=== PATIENT | male | born 1995 | race Caucasian/White ===

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

== ENCOUNTER 2017-01-23 13:53 | Outpatient (CLI) | payer BC ==
[~2017-01-23] VITALS: Ht 188 cm; Wt 95.7 kg
[2017-01-23 14:00] VITALS: BP 116/60
[2017-01-23] MEDS ORDERED: PEDI1TAB46 PO (14:18)
[2017-01-23] MEDS ORDERED: CHOL100045 PO (14:18)
[2017-01-23] MEDS ORDERED: ASCO500T6 PO (14:18)
[2017-01-24] MEDS ORDERED: IBUP-1780 PO (09:38)
[2017-01-24] MEDS ORDERED: PRD20T PO (09:38)
[2017-01-24] MEDS ORDERED: HYDR-3730 PO (09:38)
== END 2017-01-23 14:10 | disposition home or self-care (01) ==
LOC: PREOP 13:53
PROVIDERS: ATTEND Surgery Pediatric Surgery
DX: Z01.818 Encounter for other preprocedural examination (principal); Z11.2 Encounter for screening for other bacterial diseases; K40.90 Unilateral inguinal hernia, without obstruction or gangrene, not specified as recurrent
CPT/HCPCS: 87081

== ENCOUNTER 2017-01-24 06:27 | Day surgery (SDC) | payer BC ==
[~2017-01-24] VITALS: Ht 188 cm; Wt 95.7 kg
[2017-01-24] MEDS: LACTATED RINGERS 1,000 ML IV PRN ×2 (06:20→08:50)
[~2017-01-24 06:27] MED LIST changes: -BUP/EPI 0.5% 1:200,000 (SENSORCAINE) 30 ML VIAL ONE; -CATHETER FLUSH 10 ML SYR IV PRN; -HYDR-3730 PO; -IBUP-1780 PO; -IOHEXOL 350 MG/ML 100 ML (OMNIPAQUE 350) VIAL IV ONE; -NS 100 ML (IVPB) BAG IV ONE; -PRD20T PO
[2017-01-24 06:53] LABS: MEAN PLATELET VOLUME 9.5 FL (7.4-10.4); RED BLOOD COUNT 4.99 10^6/uL (4.35-5.85); RED CELL DISTRIBUTION WIDTH 12.5 % (10.0-14.5); WHITE BLOOD COUNT 4.9 10^3/uL (4.3-11.0)
[2017-01-24 06:57] VITALS: BP 105/51
[2017-01-24] MEDS ORDERED: CLINDAMYCIN 600 MG/50 ML IVPB 50 ML IV ONE ×2 (07:38→08:00)
[2017-01-24] MEDS ORDERED: fentaNYL INJECTION 100 MCG/2 ML AMP ONE ×2 (07:49→10:07)
[2017-01-24] MEDS ORDERED: MIDAZOLAM 2 MG/2 ML (VERSED) VIAL ONE (07:49)
--- NOTE | 2017-01-24 07:57 | Progress Note-Pre Operative ---
Pre-Operative Progress Note H&P Reviewed The H&P was reviewed, patient examined and no changes noted. Date H&P Reviewed: Jan 24, 2017 Time H&P Reviewed: 07:40 Pre-Operative Diagnosis: Symptomatic direct left inguinal hernia EDA ECHEVARRIA ELECTRONIC SCANNER OPERATOR Jan 24, 2017 7:57 am
[2017-01-24] MEDS ORDERED: CLINDAMYCIN 600 MG/NS 50 ML IVPB IV ONE ×2 (08:00)
[2017-01-24] MEDS ORDERED: ONDANSETRON 4 MG/2 ML (SDV) Z0FRAN ONE (09:18)
[2017-01-24] MEDS ORDERED: LIDOCAINE PF 2% 10 ML (XYLOCAINE) AMP ONE (09:18)
[2017-01-24] MEDS ORDERED: SEVOFLURANE (ULTANE) 15 ML INHAL SOLN ONE ×4 (09:18)
[2017-01-24] MEDS ORDERED: ROCURONIUM 50 MG/5 ML (ZEMURON) VIAL IV ONE (09:18)
[2017-01-24] MEDS ORDERED: LACTATED RINGERS 2,000 ML IV ONE (09:18)
[2017-01-24] MEDS ORDERED: proPOfol 200 MG/20 ML (DIPRIVAN) VIAL IV ONE (09:18)
[2017-01-24] MEDS ORDERED: DEXAMETHASONE PF 10 MG/ML (DECADRON) VIAL ONE (09:18)
--- NOTE | 2017-01-24 09:34 | Progress Note-Post Operative ---
Post-Operative Progess Note Surgeon (s)/Hearing Aid Dispenser (s) Surgeon WAI LEAVITT MD Hearing Aid Dispenser: vy delarosa PERSONAL BANKING ASSISTANT Pre-Operative Diagnosis Symptomatic direct left inguinal hernia Post-Operative Diagnosis symptomatic left inguinal strain, no hernia. Post-Op Procedure Note Date of Procedure: Jan 24, 2017 Name of Procedure Performed: diagnostic laparoscopy Description of the Procedure: diagnostic laparoscopy Findings of the Procedure . Anesthesia Type GET Estimated blood loss (mL): minimal Specimen(s) collected/removed none WAI LEAVITT MD Jan 24, 2017 9:34 am
[2017-01-24] MEDS ORDERED: PRD20T PO (09:38)
[2017-01-24] MEDS ORDERED: HYDR-3730 PO (09:38)
[2017-01-24] MEDS ORDERED: IBUP-1780 PO (09:38)
[2017-01-24] MEDS ORDERED: ONDANSETRON 4 MG/2 ML (SDV) Z0FRAN IVP PRN (09:45)
[2017-01-24] MEDS ORDERED: morphine INJ 10 MG/ML 1ML (SYR OR VIAL) IVP PRN ×2 (09:45→10:15)
[2017-01-24] MEDS ORDERED: HYDROcodone/APAP 5 MG/325 MG (LORTAB) TAB PO ONE (09:45)
[2017-01-24] MEDS ORDERED: ACETAMINOPHEN 325 MG TABLET/CAPLET (TYLENOL) PO PRN (09:45)
[2017-01-24] MEDS ORDERED: BUP/EPI 0.5% 1:200,000 (SENSORCAINE) 30 ML VIAL INJ ONE (09:45)
[2017-01-24] MEDS ORDERED: KETOROLAC 30 MG/ML VIAL ONE (09:58)
[2017-01-24 10:10] VITALS: BP 116/67
[2017-01-24] MEDS ORDERED: fentaNYL INJECTION 100 MCG/2 ML AMP IVP PRN (10:15)
[2017-01-24 10:40] VITALS: BP 133/65
[2017-01-24 11:10] VITALS: BP 133/65
--- NOTE | 2017-01-24 11:16 | OPERATIVE REPORT ---
DATE OF SERVICE: 01/24/2017 PREOPERATIVE DIAGNOSIS: Early left inguinal hernia. POSTOPERATIVE DIAGNOSIS: No hernias identified. The small bowel, colon, mesentery, gallbladder and liver appeared normal. PROCEDURE: Diagnostic laparoscopy. SURGEON: Dr. Leavitt. WOOD BOATBUILDER: José Miguel Arreola APRN. ANESTHESIA: General endotracheal. ESTIMATED BLOOD LOSS: Minimal. FINDINGS: There was no left inguinal hernia components bilaterally, even after general anesthetic and relaxation, as well as pneumo insufflation for approximately 30 minutes. There were no other hernias identified. The small bowel, omentum, colon, appendix, liver, gallbladder and remainder of the peritoneal cavity appeared normal. DISPOSITION: The patient tolerated the procedure well. DESCRIPTION OF PROCEDURE: The patient is a 21-year-old male who we have seen before in the past. 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 He reports in approximately 08/2016 he felt pain in the inguinal region, more on the left side. He does a lot of strenuous running, as well as lifting weights. He reports that during stretches, as well as exercises and lifting weights this would exacerbate his pain more so in the left groin region. We had seen him in the office on previous occasions and there was no hernia identified; however, he did have pain upon palpation in the left inguinal region and we treated him as an inguinal ligament strain. We continued with conservative management with no exertional activities for six weeks, as well as NSAIDs; however, he continued to have pain in the left inguinal region. A CT scan was performed which did not show any hernias. Again, we had seen him in the office, and he did upon forceful Valsalva maneuver there potentially appeared to be an outpouching along the left pubic symphysis region. There were no indirect hernia defects. Due to his persistent symptoms, it was decided to proceed with a diagnostic laparoscopy. The patient was brought to the operating room and laid supine on the table. After adequate intravenous medications and general endotracheal intubation, the abdomen was prepped and draped in the standard surgical fashion. There was 0.5% Marcaine with epinephrine was used to anesthetize the infraumbilical rim. A skin incision was made using a 15 blade. The abdominal wall was retracted anteriorly using a sharp towel clamp and a Verres needle inserted with opening pressure of 0 mmHg. The abdomen was insufflated at 15 mmHg. The Verres needle was removed and a 10 mm Xcel trocar placed, followed by a 10 mm 45 degree angle laparoscope. The four quadrant abdominal exploration was performed. There was no left direct or indirect inguinal hernia component identified. There was also no hernia component identified on the right side. We waited for approximately 30 minutes of continued muscle relaxation and pneumo insufflation with no defects identified. The small bowel, colon, omentum, appendix, liver and gallbladder appeared normal. There were also no defects within the linea semilunaris that would indicate a spigelian hernia. Due to no findings of an inguinal hernia, it was decided to proceed with medical management. The abdomen was desufflated and the port removed. The fascia was then closed using a running 0 PDS suture. The skin was closed using 4-0 Monocryl running subcuticular suture. The wound was then covered with Dermabond. The patient tolerated the procedure well. We will proceed with medical therapy with anti-inflammatories with a tapering dose of prednisone starting at 60 mg for one week, then 40 mg the following week, followed by 20 mg the following week. We will also refer him to pain management for possible injection therapy. We will also proceed with ibuprofen 800 mg t.i.d., as well as Lortab for breakthrough pain. We also recommend no activity or exertion for the next six weeks. Job ID: [id number] DocumentID: [id number] Dictated Date: 01/24/2017 09:45:31 Pipelines Supervisor Date: 01/24/2017 11:16:07 Dictated By: WAI LEAVITT MD MTDD
[2017-01-24 11:40] VITALS: BP 133/65
[2017-01-24 12:20] VITALS: BP 123/65
== END 2017-01-24 12:20 | disposition home or self-care (01) ==
LOC: SDC 06:27
PROVIDERS: ATTEND Surgery Pediatric Surgery
DX: K40.90 Unilateral inguinal hernia, without obstruction or gangrene, not specified as recurrent (principal)
CPT/HCPCS: 36415; 85027; 94664

== ENCOUNTER → 2017-06-22 | Outpatient (CLI) | payer BC, OTHER ==
[~2017-06-22] MED LIST changes: +HYDR-3730 PO; +IBUP-1780 PO; +PRD20T PO
--- NOTE | 2017-06-22 11:40 | Diagnostic Imaging Report ---
PROCEDURE: MRI pelvis without contrast. TECHNIQUE: Multiplanar, multisequence MRI of the pelvis was performed without contrast. INDICATION: Right groin pain after football injury. COMPARISONS: None available. FINDINGS: There is a complete tear of the right abductor longus from its origin of the pubic symphysis. The torn fibers retracted approximately 1.5 cm from its origin and there is a small amount of fluid and hemorrhage within the tendon gap. This tear is well visualized on coronal image 31, series 8. There is also interstitial edema within the muscle belly of the pectineus as well as the abductor brevis but these tendon origins remain intact on the right hemipelvis. The right abductor lynn muscle is normal. The bilateral proximal hamstring complexes are intact. Bilateral gluteus medius and minimus insertions are normal. Bilateral distal iliopsoas tendons are also intact. No hip effusion on either side. No peritrochanteric fluid collection to indicate bursitis. No fracture or bone contusion. No marrow replacing process. No free pelvic fluid. IMPRESSION: 1. Complete avulsion of the right abductor longus from its origin of the pubic body. There is approximately 1.5 cm of gap between the avulsed tendon and the parent bone, with a gap filled with fluid and hemorrhage. 2. Strain of the right pectineus and adductor brevis muscles without associated tear. Dictated by: Dictated on workstation # [id number]
== END ==
LOC: RAD 09:13
PROVIDERS: ATTEND Orthopaedic Surgery
DX: S76.811A Strain of other specified muscles, fascia and tendons at thigh level, right thigh, initial encounter (principal); S76.211A Strain of adductor muscle, fascia and tendon of right thigh, initial encounter; X58.XXXA Exposure to other specified factors, initial encounter; Y93.61 Activity, american tackle football; Y92.321 Football field as the place of occurrence of the external cause; Y99.8 Other external cause status
CPT/HCPCS: 72195